=== PATIENT | female | born 1970 | race Caucasian/White ===

== ENCOUNTER 2017-01-13 09:44 | Inpatient (IN) | payer OTHER ==
[2017-01-13] MEDS ORDERED: SODIUM CHLORIDE 0.9% 1,000 ML IV STA ×2 (09:54)
[2017-01-13] MEDS ORDERED: SODIUM CHLORIDE 0.9% 500 ML IV STA (09:54)
--- NOTE | 2017-01-13 09:54 | ED ---
General Adult HPI - General Chief complaint: Chest Pain Stated complaint: Chest Pain Time Seen by Provider: 01/13/17 09:53 Source: patient Mode of arrival: wheelchair Limitations: no limitations - Related Data Home Medications Medication Instructions Recorded Confirmed Allopurinol [Zyloprim] 150 mg PO DAILY 01/13/17 01/13/17 Hydrochlorothiazide [Hydrodiuril] 25 mg PO DAILY 01/13/17 01/13/17 Allergies Allergy/AdvReac Type Severity Reaction Status Date / Time No Known Allergies Allergy Unverified 01/13/17 10:23 Review of Systems ROS Statement: Those systems with pertinent positive or pertinent negative responses have been documented in the HPI. ROS Other: All systems not noted in ROS Statement are negative. Past Medical History Past Medical History: Hypertension Additional Past Medical History / Comment(s): gout History of Any Multi-Drug Resistant Organisms: None Reported Past Surgical History: No Surgical Hx Reported Past Psychological History: No Psychological Hx Reported Smoking Status: Current every day smoker Past Alcohol Use History: Daily Past Drug Use History: None Reported General Exam Limitations: no limitations General appearance: alert, in no apparent distress Head exam: Present: atraumatic, normocephalic, normal inspection Eye exam: Present: normal appearance, PERRL, EOMI. Absent: scleral icterus, conjunctival injection, periorbital swelling ENT exam: Present: normal exam, mucous membranes moist Neck exam: Present: normal inspection. Absent: tenderness, meningismus, lymphadenopathy Respiratory exam: Present: normal lung sounds bilaterally. Absent: respiratory distress, wheezes, rales, rhonchi, stridor Cardiovascular Exam: Present: normal rhythm, tachycardia, normal heart sounds. Absent: systolic murmur, diastolic murmur, rubs, gallop, clicks GI/Abdominal exam: Present: soft, normal bowel sounds. Absent: distended, tenderness, guarding, rebound, rigid Extremities exam: Present: normal inspection, full ROM, normal capillary refill. Absent: tenderness, pedal edema, joint swelling, calf tenderness Back exam: Present: normal inspection Neurological exam: Present: alert, oriented X3, CN II-XII intact Psychiatric exam: Present: normal affect, normal mood Skin exam: Present: warm, dry, intact, normal color. Absent: rash Course Vital Signs 01/13/17 01/13/17 01/13/17 09:45 11:00 12:00 Temperature 98.4 F Pulse Rate 135 H 112 H 117 H Respiratory 22 20 20 Rate Blood Pressure 131/93 127/86 124/86 O2 Sat by Pulse 97 99 98 Oximetry - Reevaluation(s) Reevaluation #1: 01/13/17 12:45 Patient states he/chest pain at this time EKG Findings - EKG Comments: EKG Findings:: EKG shows sinus tachycardia 123, purulent 12, QRS 62, QTc 601 Medical Decision Making - Medical Decision Making 46 female ear for evaluation regarding nonspecific chest pain. Mild pleural effusion found, patient be admitted for cardiac evaluation and echo, patient also is with electrolyte abnormalities which can be replaced - Lab Data Result diagrams: 01/13/17 10:05 01/13/17 10:05 Lab Results 01/13/17 01/13/17 01/13/17 Range/Units 10:05 10:05 10:05 WBC 11.3 H (3.8-10.6) k/uL RBC 3.84 (3.80-5.40) m/uL Hgb 13.2 (11.4-16.0) gm/dL Hct 37.9 (34.0-46.0) % MCV 98.8 (80.0-100.0) fL MCH 34.4 (25.0-35.0) pg MCHC 34.8 (31.0-37.0) g/dL RDW 13.2 (11.5-15.5) % Plt Count 260 (150-450) k/uL Neutrophils % 80 % Lymphocytes % 12 % Monocytes % 5 % Eosinophils % 0 % Basophils % 0 % Neutrophils # 9.0 H (1.3-7.7) k/uL Lymphocytes # 1.4 (1.0-4.8) k/uL Monocytes # 0.6 (0-1.0) k/uL Eosinophils # 0.0 (0-0.7) k/uL Basophils # 0.0 (0-0.2) k/uL PT (9.0-12.0) sec INR (<1.2) APTT (22.0-30.0) sec D-Dimer (<0.60) mg/L FEU Sodium 132 L (137-145) mmol/L Potassium 3.2 L (3.5-5.1) mmol/L Chloride 88 L (98-107) mmol/L Carbon Dioxide 31 H (22-30) mmol/L Anion Gap 13 mmol/L BUN 8 (7-17) mg/dL Creatinine 0.49 L (0.52-1.04) mg/dL Est GFR (MDRD) Af Amer >60 (>60 ml/min/1.73 sqM) Est GFR (MDRD) Non-Af >60 (>60 ml/min/1.73 sqM) Glucose 124 H (74-99) mg/dL Calcium 10.3 H (8.4-10.2) mg/dL Magnesium 1.0 L* (1.6-2.3) mg/dL Total Bilirubin 1.5 H (0.2-1.3) mg/dL AST 41 H (14-36) U/L ALT 35 (9-52) U/L Alkaline Phosphatase 137 H (38-126) U/L Total Creatine Kinase <20 L (30-135) U/L CK-MB (CK-2) <0.2 (0.0-2.4) ng/mL CK-MB (CK-2) Rel Index Troponin I 0.036 H* (0.000-0.034) ng/mL Total Protein 7.1 (6.3-8.2) g/dL Albumin 3.7 (3.5-5.0) g/dL Lipase 24 (23-300) U/L TSH 2.090 (0.465-4.680) mIU/L 01/13/17 Range/Units 10:05 WBC (3.8-10.6) k/uL RBC (3.80-5.40) m/uL Hgb (11.4-16.0) gm/dL Hct (34.0-46.0) % MCV (80.0-100.0) fL MCH (25.0-35.0) pg MCHC (31.0-37.0) g/dL RDW (11.5-15.5) % Plt Count (150-450) k/uL Neutrophils % % Lymphocytes % % Monocytes % % Eosinophils % % Basophils % % Neutrophils # (1.3-7.7) k/uL Lymphocytes # (1.0-4.8) k/uL Monocytes # (0-1.0) k/uL Eosinophils # (0-0.7) k/uL Basophils # (0-0.2) k/uL PT 11.4 (9.0-12.0) sec INR 1.1 (<1.2) APTT 25.5 (22.0-30.0) sec D-Dimer 1.89 H (<0.60) mg/L FEU Sodium (137-145) mmol/L Potassium (3.5-5.1) mmol/L Chloride (98-107) mmol/L Carbon Dioxide (22-30) mmol/L Anion Gap mmol/L BUN (7-17) mg/dL Creatinine (0.52-1.04) mg/dL Est GFR (MDRD) Af Amer (>60 ml/min/1.73 sqM) Est GFR (MDRD) Non-Af (>60 ml/min/1.73 sqM) Glucose (74-99) mg/dL Calcium (8.4-10.2) mg/dL Magnesium (1.6-2.3) mg/dL Total Bilirubin (0.2-1.3) mg/dL AST (14-36) U/L ALT (9-52) U/L Alkaline Phosphatase (38-126) U/L Total Creatine Kinase (30-135) U/L CK-MB (CK-2) (0.0-2.4) ng/mL CK-MB (CK-2) Rel Index Troponin I (0.000-0.034) ng/mL Total Protein (6.3-8.2) g/dL Albumin (3.5-5.0) g/dL Lipase (23-300) U/L TSH (0.465-4.680) mIU/L - Radiology Data Radiology results: report reviewed (Chest x-ray negative, ultrasound is negative , CTAs negative for fever positive for pericardial), image reviewed Critical Care Time Critical Care Time: Yes Total Critical Care Time: 31 Disposition Clinical Impression: Chest pain, Pericardial effusion, Hypomagnesemia Disposition: ADMITTED IP TO THIS [facility] Condition: Fair Referrals: Jose Alejandro Louis DO [Primary Care Provider] - 1-2 days
[2017-01-13 10:33] LABS: Basophils % (A) 0 %; CH 35.8; CHCM 36.4; Eosinophils % (A) 0 %; HCT 37.9 % (34.0-46.0); HGB 13.2 gm/dL (11.4-16.0); Luc # (Auto) 0.26; Luc % (Auto) 2; Lymphocytes # (A) 1.4 k/uL (1.0-4.8); Lymphocytes % (A) 12 %; MCH 34.4 pg (25.0-35.0); MCHC 34.8 g/dL (31.0-37.0); MCV 98.8 fL (80.0-100.0); Mean Platelet Volume 8.5; Monocytes # (A) 0.6 k/uL (0-1.0); Monocytes % (A) 5 %; Neutrophils % (A) 80 %; RBC 3.84 m/uL (3.80-5.40); RDW 13.2 % (11.5-15.5); WBC 11.3 k/uL (3.8-10.6)
[2017-01-13 10:41] LABS: ALT 35 U/L (9-52); AST 41 U/L (14-36); Alkaline Phosphatase 137 U/L (38-126); Anion Gap 13 mmol/L; Blood Urea Nitrogen 8 mg/dL (7-17); Calcium 10.3 mg/dL (8.4-10.2); Carbon Dioxide 31 mmol/L (22-30); Chloride 88 mmol/L (98-107); Glucose 124 mg/dL (74-99); Non-African American GFR(MDRD) >60 (>60 ml/min/1.73 sqM); Potassium 3.2 mmol/L (3.5-5.1); Sodium 132 mmol/L (137-145); Total Bilirubin 1.5 mg/dL (0.2-1.3); Total Protein 7.1 g/dL (6.3-8.2)
[2017-01-13 10:54] LABS: Creatine Kinase <20 U/L (30-135)
--- NOTE | 2017-01-13 11:03 | XR ---
EXAMINATION TYPE: XR chest 2V DATE OF EXAM: 01/13/2017 COMPARISON: None HISTORY: 46 year-old female shortness of breath and chest pain TECHNIQUE: PA and lateral views FINDINGS: Heart is mildly enlarged. Some strandy opacities in the mid to lower lungs suggests atelectasis. Trac e effusions are noted on the lateral view. There may be mild prominence to the pulmonary vasculature. No crista consolidation. IMPRESSION: Cardiomegaly, trace effusions, and mild interstitial prominence. Correlate for mild CHF. Strandy atel ectasis in the lower left lung.
[2017-01-13 11:05] LABS: Creatine Kinase MB <0.2 ng/mL (0.0-2.4)
[2017-01-13 11:06] LABS: Troponin I 0.036 ng/mL (0.000-0.034)
[2017-01-13] MEDS ORDERED: POTASSIUM BICARB-CITRIC ACID 25 MEQ TABLET.EFF PO STA (11:06)
[2017-01-13] MEDS ORDERED: MAGNESIUM OXIDE 400 MG TAB PO STA (11:06)
[2017-01-13] MEDS ORDERED: RX INFO: IV CONTRAST WAS GIVEN 1 EACH MISC MISCELLANE PRN (11:08)
[2017-01-13 11:17] LABS: INR 1.1 (<1.2); Partial Thromboplastin Time 25.5 sec (22.0-30.0); Prothrombin Time 11.4 sec (9.0-12.0)
--- NOTE | 2017-01-13 12:17 | CT ---
EXAMINATION TYPE: CT angio chest DATE OF EXAM: 01/13/2017 COMPARISON: Radiograph same day HISTORY: 46-year-old female complains of midline chest pain and difficulty breathing. TECHNIQUE: Contiguous axial scanning of the chest performed with IV Contrast, patient injected with 1 00 mL of Omnipaque 350. Coronal/sagittal MIP reconstructions performed. CT DLP: 523 mGycm Automated exposure control for dose reduction was used. FINDINGS: The heart is upper limits of normal in size. However, there is a moderate-sized pericardial effusion circumferentially around the heart measuring 1.6 cm thick. The aorta is normal caliber with conventional arch vessel branching anatomy. Scattered nonenlarged mediastinal lymph nodes are present. The graft trace pleural effusions are pres ent. Strandy atelectasis at the left base. There are mild septal lines at the lung bases and mild underlyi ng centrilobular emphysema with some scattered groundglass especially in the mid to lower lungs. Mild diffuse bronchial wall thickening is also noted. Satisfactory opacification of the pulmonary arterial system. No evidence for pulmonary embolus. Visualized upper abdomen shows no gross abnormal. Bones: No osseous destructive process. IMPRESSION: 1. NO EVIDENCE FOR PULMONARY EMBOLUS. 2. MODERATE PERICARDIAL EFFUSION MEASURING 1.6 CM THICK. CLINICAL CORRELATION RECOMMENDED. 3. TRACE EFFUSIONS, SOME SEPTAL LINES, AND SOME SUBTLE GROUNDGLASS IN THE LOWER LUNGS. CORRELATE FOR POSSIBLE MILD CHF. 4. UNDERLYING MILD EMPHYSEMA.
--- NOTE | 2017-01-13 12:28 | US ---
EXAMINATION TYPE: US gallbladder DATE OF EXAM: 01/13/2017 COMPARISON: NONE CLINICAL HISTORY: 46-year-old female Pain. Pt states chest pain TECHNIQUE: Multiple sonographic images of the right upper quadrant are obtained. FINDINGS: Liver Length: 21.0 cm Gallbladder Wall: 0.5 cm CBD: 0.3 cm Right Kidney: 11.9 x 4.2 x 4.2 cm Pancreas: Body wnl, head and tail obscured by bowel gas Liver: Enlarged. There is a 1.9 cm echogenic lesion in the left hepatic lobe. Gallbladder: No abnormal gallbladder distention or shadowing calculi. However, there is wall thicken ing with trace pericholecystic fluid. Evidence for sonographic Olsen's sign: No CBD: Difficult to visualize; no gross dilatation. Right Kidney: No hydronephrosis. IMPRESSION: 1. Hepatomegaly. Correlate for possible nonspecific underlying hepatocellular disease such as hepatit is. 2. Gallbladder wall thickening with trace pericholecystic fluid. These are nonspecific findings as th ere are no stones, gallbladder distention, or sonographic Olsen sign identified. Findings may reflec t fluid overload state or could be reactive to adjacent inflammation. If further imaging evaluation o f the gallbladder is indicated, HIDA scan can be performed. 3. Recommend 3 month follow-up ultrasound to reassess the 1.9 cm echogenic liver lesion, possible hem angioma.
[2017-01-13] MEDS ORDERED: ASPIRIN 81 MG PO STA (12:45)
[2017-01-13] MEDS ORDERED: NITROGLYCERIN SL TABS 0.4 MG TAB SUBLINGUAL PRN (12:45)
[2017-01-13] MEDS ORDERED: LORazepam 2 MG/ML SYRINGE IV STA (13:14)
[2017-01-13] MEDS: MAGNESIUM SULFATE-D5W PMX 1 GM in DEXTROSE/WATER 1 100ML.BAG IVPB SCH ×4 (13:26→17:35)
--- NOTE | 2017-01-13 13:29 | ECHOF ---
Referral Reason:effusion MEASUREMENTS -------- HEIGHT: 152.4 cm WEIGHT: 78.9 kg BP: IVSd: 1.1 cm (0.6 - 1.1) LVIDd: 4.4 cm (3.9 - 5.3) LVPWd: 1.3 cm (0.6 - 1.1) IVSs: 1.5 cm LVIDs: 2.9 cm LVPWs: 1.3 cm Ao Diam: 2.6 cm (2.0 - 3.7) AV Cusp: 1.4 cm (1.5 - 2.6) LA Diam: 3.8 cm (2.7 - 3.8) MV EXCURSION: 20.477 mm (> 18.000) MV EF SLOPE: 96 mm/s (70 - 150) EPSS: 0.3 cm MV E West: 0.71 m/s MV DecT: 213 ms MV A West: 0.69 m/s MV E/A Ratio: 1.02 RAP: 5.00 mmHg RVSP: 18.36 mmHg FINDINGS -------- Sinus rhythm. This was a technically adequate study. The left ventricular size is normal. There is mild concentric left ventricular hypertrophy. Overall left ventricular systolic function is normal with, an EF between 55 - 60 %. The right ventricle is normal in size. The left atrial size is normal. The right atrial size is normal. There is mild aortic valve sclerosis. There is no evidence of aortic regurgitation. Mild mitral annular calcification present. Mild mitral regurgitation is present. Mild tricuspid regurgitation present. There is no evidence of pulmonary hypertension. The right ventricular systolic pressure, as measured by Doppler, is 18.36mmHg. There is no pulmonic regurgitation present. The aortic root size is normal. There is a moderate, generalized pericardial effusion with fibrin strands present. Fibrin strands in Pericardial fluid CONCLUSIONS -------- 1. The left ventricular size is normal. 2. There is no pulmonic regurgitation present. 3. There is a moderate, generalized pericardial effusion present. 4. Fibrin strands in Pericardial fluid 5. There is mild concentric left ventricular hypertrophy. 6. Overall left ventricular systolic function is normal with, an EF between 55 - 60 %. 7. There is mild aortic valve sclerosis. 8. Mild mitral annular calcification present. 9. Mild mitral regurgitation is present. 10. Mild tricuspid regurgitation present. 11. There is no evidence of pulmonary hypertension. 12. The right ventricular systolic pressure, as measured by Doppler, is 18.36mmHg. [employer] APPLICATION DEVELOPER: Lety Tamayo RDCS
[2017-01-13] MEDS: MORPHINE SULFATE 4 MG/ML SYRINGE IV PRN ×2 (13:52→15:51)
[2017-01-13] MEDS: POTASSIUM CHLORIDE 10 MEQ, LIDOCAINE 2% INJ 10 MG in SODIUM CHLORIDE 0.9% 100 ML IVPB SCH ×2 (14:19→15:42)
[2017-01-13] MEDS: SODIUM CHLORIDE 0.9% 1,000 ML IV SCH ×2 (14:19→23:33)
[2017-01-13] MEDS: PANTOPRAZOLE 40 MG TABLET PO SCH (15:45)
[2017-01-13] MEDS: IBUPROFEN 600 MG TAB PO SCH ×2 (15:46→22:11)
[2017-01-13] MEDS: COLCHICINE 0.6 MG TAB PO SCH (15:46)
[2017-01-13] MEDS: predniSONE 20 MG TAB PO SCH (15:46)
--- NOTE | 2017-01-13 15:46 | P.GSCN ---
<Sherly Brian - Last Filed: 01/13/17 15:21> History of Present Illness Consult date: 01/13/17 Reason for Consult: Pericardial effusion, treatment recommendations. Requesting physician: Riley Weiss History of present illness: This 46-year-old female with a history of hypertension gout, tobacco abuse, and alcohol abuse presented to the emergency department with complaints of chest pain. Apparently she had been having this chest pain for the last several days. She described it as sharp with radiation to her shoulders, associated with shortness of breath, nausea, and diaphoresis. She states the medication she was given in the ER has helped with the pain, but she is still somewhat short of breath. She denies dizziness, syncope, recent travel, sick contacts, or any recent illnesses. Her ER workup included a CTA which did rule out pulmonary embolism but demonstrated a moderate pericardial effusion. She had a mildly elevated troponin of 0.036, hypokalemia with potassium level of 3.2, and hypo-magnesiumia with a magnesium level of 1.0. An echocardiogram was ordered which demonstrated mild concentric left ventricular hypertrophy, normal LV function with an ejection fraction 55-60%, mild MR, mild TR, and a moderate generalized pericardial effusion with fibrin strands present. Dr. Lou was consulted for treatment recommendations. Review of Systems 14 point review systems was completed was negative except as noted. - Constitutional Reports fatigue - Cardiovascular Reports as per HPI, Reports dyspnea on exertion, Reports palpitations, Reports rapid heart beat, Reports shortness of breath - Respiratory Reports as per HPI, Reports dyspnea - Gastrointestinal Reports as per HPI, Reports nausea Past Medical History Past Medical History: Hypertension Additional Past Medical History / Comment(s): Bilateral great toe gout History of Any Multi-Drug Resistant Organisms: None Reported Past Surgical History: No Surgical Hx Reported Past Anesthesia/Blood Transfusion Reactions: No Reported Reaction Smoking Status: Current every day smoker Additional Past Alcohol Use History / Comment(s): States she drinks whiskey, several drinks every other day. Past Drug Use History: None Reported Additional Drug Use History / Comment(s): Smokes 1 pack of cigarettes daily for the last 20 years. - Past Family History Father Family Medical History: No Reported History Additional Family Medical History / Comment(s): Father is healthy Mother Family Medical History: Vascular Disorder Additional Family Medical History / Comment(s): Mother had carotid disease. She is still living. Medications and Allergies Home Medications Medication Instructions Recorded Confirmed Type Colchicine [Colcrys] 0.6 mg PO BID #42 tab 01/15/17 Rx Ibuprofen [Motrin] 600 mg PO BID #42 tab 01/15/17 Rx Nicotine 21Mg/24Hr Patch [Habitrol] 1 patch TRANSDERM DAILY #30 patch 01/15/17 Rx predniSONE See Taper PO DAILY #14 tab 01/15/17 Rx Allergies Allergy/AdvReac Type Severity Reaction Status Date / Time No Known Allergies Allergy Unverified 01/13/17 10:23 Surgical - Exam Vital Signs Temp Pulse Resp BP Pulse Ox 98.4 F 135 H 22 131/93 97 01/13/17 09:45 01/13/17 09:45 01/13/17 09:45 01/13/17 09:45 01/13/17 09:45 - General well developed, well nourished, no distress, obese - Eyes PERRL, normal ocular movement - ENT no hearing loss - Neck no masses, no bruits, trachea midline - Respiratory Lungs sounds very diminished bilaterally. Respirations even, nonlabored. Currently on room air with oxygen saturation 97%. normal expansion - Cardiovascular S1, S2 present. No distant heart sounds. Regular, tachycardia rate and rhythm , sinus tach on telemetry. Palpable pulses bilaterally, no edema present. - Abdomen Abdomen: soft, non tender, bowel sounds - Genitourinary Deferred - Rectum Deferred - Integumentary no rash, no growths, no abnormal pigmentation - Neurologic normal coordination, normal sensation - Musculoskeletal normal gait, normal posture - Psychiatric oriented to time, oriented to person, oriented to place, speech is normal, memory intact Results - Labs 01/13/17 10:05 01/13/17 10:05 Abnormal Lab Results - Last 24 Hours (Table) 01/13/17 01/13/17 01/13/17 Range/Units 10:05 10:05 10:05 WBC 11.3 H (3.8-10.6) k/uL Neutrophils # 9.0 H (1.3-7.7) k/uL D-Dimer (<0.60) mg/L FEU Sodium 132 L (137-145) mmol/L Potassium 3.2 L (3.5-5.1) mmol/L Chloride 88 L (98-107) mmol/L Carbon Dioxide 31 H (22-30) mmol/L Creatinine 0.49 L (0.52-1.04) mg/dL Glucose 124 H (74-99) mg/dL Calcium 10.3 H (8.4-10.2) mg/dL Magnesium 1.0 L* (1.6-2.3) mg/dL Total Bilirubin 1.5 H (0.2-1.3) mg/dL AST 41 H (14-36) U/L Alkaline Phosphatase 137 H (38-126) U/L Total Creatine Kinase <20 L (30-135) U/L Troponin I 0.036 H* (0.000-0.034) ng/mL 01/13/17 Range/Units 10:05 WBC (3.8-10.6) k/uL Neutrophils # (1.3-7.7) k/uL D-Dimer 1.89 H (<0.60) mg/L FEU Sodium (137-145) mmol/L Potassium (3.5-5.1) mmol/L Chloride (98-107) mmol/L Carbon Dioxide (22-30) mmol/L Creatinine (0.52-1.04) mg/dL Glucose (74-99) mg/dL Calcium (8.4-10.2) mg/dL Magnesium (1.6-2.3) mg/dL Total Bilirubin (0.2-1.3) mg/dL AST (14-36) U/L Alkaline Phosphatase (38-126) U/L Total Creatine Kinase (30-135) U/L Troponin I (0.000-0.034) ng/mL Diabetes panel 01/13/17 Range/Units 10:05 Sodium 132 L (137-145) mmol/L Potassium 3.2 L (3.5-5.1) mmol/L Chloride 88 L (98-107) mmol/L Carbon Dioxide 31 H (22-30) mmol/L BUN 8 (7-17) mg/dL Creatinine 0.49 L (0.52-1.04) mg/dL Glucose 124 H (74-99) mg/dL Calcium 10.3 H (8.4-10.2) mg/dL AST 41 H (14-36) U/L ALT 35 (9-52) U/L Alkaline Phosphatase 137 H (38-126) U/L Total Protein 7.1 (6.3-8.2) g/dL Albumin 3.7 (3.5-5.0) g/dL Thyroid panel 01/13/17 Range/Units 10:05 TSH 2.090 (0.465-4.680) mIU/L Calcium panel 01/13/17 Range/Units 10:05 Calcium 10.3 H (8.4-10.2) mg/dL Albumin 3.7 (3.5-5.0) g/dL Pituitary panel 01/13/17 Range/Units 10:05 Sodium 132 L (137-145) mmol/L Potassium 3.2 L (3.5-5.1) mmol/L Chloride 88 L (98-107) mmol/L Carbon Dioxide 31 H (22-30) mmol/L BUN 8 (7-17) mg/dL Creatinine 0.49 L (0.52-1.04) mg/dL Glucose 124 H (74-99) mg/dL Calcium 10.3 H (8.4-10.2) mg/dL TSH 2.090 (0.465-4.680) mIU/L Adrenal panel 01/13/17 Range/Units 10:05 Sodium 132 L (137-145) mmol/L Potassium 3.2 L (3.5-5.1) mmol/L Chloride 88 L (98-107) mmol/L Carbon Dioxide 31 H (22-30) mmol/L BUN 8 (7-17) mg/dL Creatinine 0.49 L (0.52-1.04) mg/dL Glucose 124 H (74-99) mg/dL Calcium 10.3 H (8.4-10.2) mg/dL Total Bilirubin 1.5 H (0.2-1.3) mg/dL AST 41 H (14-36) U/L ALT 35 (9-52) U/L Alkaline Phosphatase 137 H (38-126) U/L Total Protein 7.1 (6.3-8.2) g/dL Albumin 3.7 (3.5-5.0) g/dL - Imaging Chest x-ray: report reviewed, image reviewed CT scan - chest: report reviewed, image reviewed EKG: image reviewed Additional studies: Echocardiogram results reviewed. Assessment and Plan (1) Hypertension Status: Acute (2) Gout Status: Acute (3) Tobacco abuse Status: Acute (4) Alcohol abuse Status: Acute (5) Hypomagnesemia Status: Acute (6) Pericardial effusion Status: Acute Plan: The patient was seen and examined bedside. Chart from/diagnostics were reviewed. Potassium and magnesium being replaced. Patient has already been started on aspirin, colchicine, Motrin, prednisone, would continue these medications. Will discuss the case with Dr. Lou, further recommendations forthcoming. Smoking cessation was encouraged. Thank you for this consult. We look forward to working with you in the care of your patient. Time with Patient: Greater than 30 <Juvenal Lou - Last Filed: 01/15/17 14:19> Surgical - Exam Vital Signs Temp Pulse Resp BP Pulse Ox 98.4 F 135 H 22 131/93 97 01/13/17 09:45 01/13/17 09:45 01/13/17 09:45 01/13/17 09:45 01/13/17 09:45 Results - Labs 01/13/17 10:05 01/15/17 05:17 Abnormal Lab Results - Last 24 Hours (Table) 01/15/17 Range/Units 05:17 Sodium 131 L (137-145) mmol/L Potassium 3.1 L (3.5-5.1) mmol/L Chloride 95 L (98-107) mmol/L Creatinine 0.40 L (0.52-1.04) mg/dL Calcium 8.2 L (8.4-10.2) mg/dL Diabetes panel 01/15/17 Range/Units 05:17 Sodium 131 L (137-145) mmol/L Potassium 3.1 L (3.5-5.1) mmol/L Chloride 95 L (98-107) mmol/L Carbon Dioxide 28 (22-30) mmol/L BUN 8 (7-17) mg/dL Creatinine 0.40 L (0.52-1.04) mg/dL Glucose 95 (74-99) mg/dL Calcium 8.2 L (8.4-10.2) mg/dL Calcium panel 01/15/17 Range/Units 05:17 Calcium 8.2 L (8.4-10.2) mg/dL Pituitary panel 01/15/17 Range/Units 05:17 Sodium 131 L (137-145) mmol/L Potassium 3.1 L (3.5-5.1) mmol/L Chloride 95 L (98-107) mmol/L Carbon Dioxide 28 (22-30) mmol/L BUN 8 (7-17) mg/dL Creatinine 0.40 L (0.52-1.04) mg/dL Glucose 95 (74-99) mg/dL Calcium 8.2 L (8.4-10.2) mg/dL Adrenal panel 01/15/17 Range/Units 05:17 Sodium 131 L (137-145) mmol/L Potassium 3.1 L (3.5-5.1) mmol/L Chloride 95 L (98-107) mmol/L Carbon Dioxide 28 (22-30) mmol/L BUN 8 (7-17) mg/dL Creatinine 0.40 L (0.52-1.04) mg/dL Glucose 95 (74-99) mg/dL Calcium 8.2 L (8.4-10.2) mg/dL Assessment and Plan Plan: The patient was seen and examined. I agree with the above assessment and plan. The patient is a 46-year-old female, who was otherwise healthy, who presented to the hospital with worsening shortness of breath. A computed tomography scan of the chest was negative for pulmonary embolus but did reveal a pericardial effusion. Echocardiogram confirmed evidence of a moderate pericardial effusion without evidence of tamponade. The patient is currently hemodynamically stable and breathing easily on room air. We will continue to observe her for now. Follow-up echocardiogram is planned for tomorrow morning. There is no plan for surgical intervention on my part at this time.
[2017-01-13] MEDS: NICOTINE 21MG/24HR PATCH TRANSDERM SCH (15:51)
[2017-01-13] MEDS: IPRATROPIUM-ALBUTEROL 3 ML NEB INHALATION SCH ×2 (16:35→20:47)
[2017-01-13 16:42] LABS: Anion Gap 11 mmol/L; Blood Urea Nitrogen 7 mg/dL (7-17); Calcium 9.1 mg/dL (8.4-10.2); Carbon Dioxide 28 mmol/L (22-30); Chloride 90 mmol/L (98-107); Glucose 165 mg/dL (74-99); Non-African American GFR(MDRD) >60 (>60 ml/min/1.73 sqM); Potassium 3.9 mmol/L (3.5-5.1); Sodium 129 mmol/L (137-145)
[2017-01-13 16:49] LABS: Creatine Kinase <20 U/L (30-135)
[2017-01-13 17:24] LABS: Creatine Kinase MB <0.2 ng/mL (0.0-2.4)
--- NOTE | 2017-01-13 17:42 | HP ---
HISTORY AND PHYSICAL DATE OF ADMISSION: 01/13/17 PRESENTING COMPLAINT: Shortness of breath. HISTORY OF PRESENTING COMPLAINT: This is a pleasant 46-year-old patient of Dr. Louis with known history of hypertension, gout, stable. Patient for about 2 weeks getting increasingly short of breath. Difficult to take a deep breath. It hurts in her chest. Has been taking Motrin for the same. Also noticed edema in the lower extremity. Uses about 3 pillows at night. Maybe low-grade fever and had been postponing and finally decided to come in. REVIEW OF SYSTEMS: Constitutional: Tired. HEENT: None. RESPIRATORY: As above. Cardiovascular as above. Gastrointestinal: None. Genitourinary: None. Musculoskeletal none. Dermatological and hematologic, lymphatic none. Psychiatry and neurologic none. PAST MEDICAL HISTORY: Hypertension, gout in both toes. Surgical history none. SOCIAL HISTORY: Lives with her boyfriend Carlos Enrique. Smoked a pack a day for 30 years. Drinks alcohol on alternate days. About 3-5 shots. 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 FAMILY HISTORY: Reviewed, noncontributory to presentation. HOME MEDICATIONS: 1. Hydrochlorothiazide 25 mg daily. 2. Allopurinol 150 mg a day. ALLERGIES: None. PHYSICAL EXAMINATION: Temperature 98.4, pulse 135, respiratory rate 22, blood pressure 131/93, pulse ox 97% on room air. General: Well built. sitting up, comfortable. Eyes: Pupils equal. Conjunctivae normal. HEENT: Oral cavity normal. NECK: JVD raised. Mass not palpable. Respiratory effort increased. Lungs bilateral basal crackles. Cardiovascular first and second sounds normal. Edema present. ABDOMEN: Soft, nontender. Liver and spleen not palpable. Lymphatics no lymph nodes palpable in the neck or axillae. Psychiatric alert and oriented times three. Mood and affect normal. Neurological: Pupils equal. Cranial nerves grossly intact. Power and sensation grossly intact. INVESTIGATIONS: White count 11.3, hemoglobin 13.2, potassium 3.2, BUN 8, creatinine 0.49, magnesium 1.0. Troponin 0.036. Chest x-ray reviewed by me shows cardiomegaly and venous prominence. EKG sinus tachycardia and some P-pulmonale in lead 2, nonspecific changes. Chest CTA some atelectasis. No PE. Shows a moderate pericardial effusion. A 2D echocardiogram shows moderate generalized pericardial effusion. EF 55-60%. ASSESSMENT: 1. This is a patient who presents with two weeks history of increasing chest pain, worse when she lies down. Better when she sits up. Some low-grade fever. Found to have a significant amount of moderate generalized pericardial effusion, likely felt to be from pericarditis and some clinical evidence of diastolic dysfunction. 2. Chronic alcohol use. 3. Chronic nicotine dependence. 4. Chronic obstructive pulmonary disease in an active cigarette smoker. 5. Obesity BMI 34.0. PLAN: Patient started on nebulized bronchodilators. Bronchodilators and inhaled steroids. Cardiology was consulted. She has been put on Motrin and Colchicine. Care was discussed with the patient, her sister and mother at the bedside. Dr. Matias from cardiology being consulted. Patient may need to be tapped depending on how she does. There was no obvious tamponade suggested at least on the echocardiogram. MMODL / IJN: [id number] /
--- NOTE | 2017-01-13 20:18 | CONS ---
CONSULTATION CHIEF COMPLAINT: Chest pain and shortness of breath. HISTORY OF PRESENT ILLNESS: Elen is a 46-year-old lady with no significant past medical history, who presented to hospital complaining of chest pain. She describes it as a precordial chest discomfort and shortness of breath. This started about 2 weeks ago when she initially presented to the emergency room at [facility]. From there, she was sent home. Comes back to [facility] with worsening symptoms. Due to this she was admitted to the hospital. A CT scan of the chest that was done to rule out pulmonary embolism. Came back negative for PE. Otherwise, showed moderate pericardial effusion. Her symptomatology is consistent with pericarditis with pericardial effusion. EKG does not reveal any significant changes. Troponin is in the marcelino zone at 0.036 which could be due to a myopericarditis. D-dimer was elevated at 1.89 chest x-ray showed mild cardiomegaly. EKG did not reveal ischemic changes. The patient had been started on steroids, Indocin and Colchicine with significant improvement in her symptoms in the last 2 hours. PAST MEDICAL HISTORY: Significant for hypertension and gout. FAMILY HISTORY: Significant for carotid stenosis in her mother and sister. SOCIAL HISTORY: Significant for smoking and also EtOH abuse. REVIEW OF SYSTEMS: HEENT is unremarkable. Cardiac as described above. Respiratory negative. GI negative. Genitourinary negative. Allergy/Immunology: Negative. Skin negative. Musculoskeletal negative. Endocrine: Negative. CONSTITUTIONAL: Negative DERM: Negative. Oncological negative. Rest of the systems reviewed, not relevant. EXAM: She is comfortable at rest. VITAL SIGNS: Stable. Chest exam reveals good air entry bilaterally. Heart exam reveals first and second heart sounds. No gallop. I do not hear any rub. ABDOMEN: Soft. Exam of the extremities did not reveal any edema. Peripheral pulses are felt. Echocardiogram shows moderate pericardial effusion. EKG showed sinus rhythm with sinus tachycardia. D-dimer is elevated. CT chest is negative for pulmonary embolism. Aortic root appears normal. Troponin is 0.039. Creatinine is normal at 0.4. White cell count is elevated at 11.3. ASSESSMENT: Acute pericarditis with pericardial effusion. PLAN: Patient's chest discomfort is very atypical of pericarditis. She states that she feels better when she bends forward. It gets worse when she is lying back. There is some respirophasic changes in her pain. We will treat her with steroids and NSAIDS and colchicine. Obtain ESR. Repeat an echocardiogram over the next several days and see how she does. MMTERRENCEL / IJN: [id number] /
[2017-01-13] MEDS ORDERED: METOPROLOL TARTRATE 50 MG TAB PO SCH (21:00)
[2017-01-13] MEDS: LORazepam 2 MG/ML SYRINGE IV PRN (22:12)
[2017-01-13 22:58] LABS: Creatine Kinase 22 U/L (30-135)
[2017-01-13 23:11] LABS: Creatine Kinase MB 0.2 ng/mL (0.0-2.4); Troponin I <0.012 ng/mL (0.000-0.034)
[2017-01-14] MEDS: PANTOPRAZOLE 40 MG TABLET PO SCH ×2 (06:42→17:17)
[2017-01-14 07:14] LABS: Anion Gap 9 mmol/L; Blood Urea Nitrogen 8 mg/dL (7-17); Calcium 8.2 mg/dL (8.4-10.2); Carbon Dioxide 26 mmol/L (22-30); Chloride 92 mmol/L (98-107); Cholesterol 156 mg/dL (<200); Glucose 134 mg/dL (74-99); HDL Cholesterol 46 mg/dL (40-60); Non-African American GFR(MDRD) >60 (>60 ml/min/1.73 sqM); Sodium 127 mmol/L (137-145)
[2017-01-14 07:23] LABS: Potassium 4.1 mmol/L (3.5-5.1)
[2017-01-14] MEDS: NICOTINE 21MG/24HR PATCH TRANSDERM SCH (08:21)
[2017-01-14] MEDS: SODIUM CHLORIDE 0.9% 1,000 ML IV SCH (08:21)
[2017-01-14] MEDS: predniSONE 20 MG TAB PO SCH (08:21)
[2017-01-14] MEDS: COLCHICINE 0.6 MG TAB PO SCH ×2 (08:21→20:02)
[2017-01-14] MEDS: ASPIRIN 325 MG TAB PO SCH (08:21)
[2017-01-14] MEDS: IBUPROFEN 600 MG TAB PO SCH ×3 (08:23→21:04)
--- NOTE | 2017-01-14 08:48 | P.PN ---
<Sherly Brian - Last Filed: 01/14/17 08:40> Subjective Principal diagnosis: Pericardial effusion Patient's currently sitting up in the bed in no acute distress. States chest pain and chest breath has significantly improved. She has been up ambulating [id number] to the bathroom without any distress. Objective - Vital Signs Vital signs: Vital Signs Temp 97.0 F L 01/14/17 08:00 Pulse 103 H 01/14/17 08:00 Resp 18 01/14/17 08:00 BP 109/71 01/14/17 08:00 Pulse Ox 95 01/14/17 08:00 Intake & Output 01/13/17 01/14/17 01/14/17 18:59 06:59 18:59 Intake Total 1100 1000 1240 Balance 1100 1000 1240 Weight 78.925 kg 83.1 kg Intake: IV 1000 Sodium Chloride 0.9% 1, 1000 000 ml @ 100 mls/hr IV . Q10H [facility] Rx#:[id number] Intake, IV Titration 500 1000 Amount Magnesium Sulfate-D5w Pmx 400 1 gm In Dextrose/Water 1 100ml.bag @ 100 mls/hr IVPB Q1H [facility] Rx#: [id number] Potassium Chloride 10 meq 100 100 Lidocaine 2% Inj 10 mg In Sodium Chloride 0.9% 100 ml @ 100 mls/hr IVPB Q1HR [facility] Rx#:[id number] Sodium Chloride 0.9% 1, 200 500 000 ml @ 100 mls/hr IV . Q10H [facility] Rx#:[id number] Sodium Chloride 0.9% 1, 200 000 ml @ 100 mls/hr IV . Q10H STA Rx#:[id number] Oral 600 240 Other: Voiding Method Toilet Toilet # Voids 1 - Constitutional General appearance: Present: cooperative, no acute distress - Respiratory Details: Lungs sounds diminished bilaterally. Respirations even, nonlabored. Currently on room air with oxygen saturation 95%. - Cardiovascular Details: S1, S2 present. Regular rate and rhythm, normal sinus rhythm on telemetry. Palpable pulses bilaterally. No edema present. - Gastrointestinal Gastrointestinal Comment(s): Abdomen soft, nontender, nondistended. Active bowel sounds 4 quadrants. Tolerating diet. - Genitourinary Genitourinary Comment(s): Continues to void clear, yellow urine. - Neurologic Neurologic: Present: CNII-XII intact - Musculoskeletal Musculoskeletal: Present: gait normal, strength equal bilaterally - Psychiatric Psychiatric: Present: A&O x's 3, appropriate affect, intact judgment & insight - Allied health notes Allied health notes reviewed: nursing - Labs CBC & Chem 7: 01/13/17 10:05 01/14/17 06:33 Labs: Abnormal Lab Results - Last 24 Hours (Table) 01/13/17 01/13/17 01/13/17 Range/Units 10:05 10:05 10:05 WBC 11.3 H (3.8-10.6) k/uL Neutrophils # 9.0 H (1.3-7.7) k/uL ESR (0-20) mm/hr D-Dimer (<0.60) mg/L FEU Sodium 132 L (137-145) mmol/L Potassium 3.2 L (3.5-5.1) mmol/L Chloride 88 L (98-107) mmol/L Carbon Dioxide 31 H (22-30) mmol/L Creatinine 0.49 L (0.52-1.04) mg/dL Glucose 124 H (74-99) mg/dL Calcium 10.3 H (8.4-10.2) mg/dL Magnesium 1.0 L* (1.6-2.3) mg/dL Total Bilirubin 1.5 H (0.2-1.3) mg/dL AST 41 H (14-36) U/L Alkaline Phosphatase 137 H (38-126) U/L Total Creatine Kinase <20 L (30-135) U/L Troponin I 0.036 H* (0.000-0.034) ng/mL 01/13/17 01/13/17 01/13/17 Range/Units 10:05 10:05 16:06 WBC (3.8-10.6) k/uL Neutrophils # (1.3-7.7) k/uL ESR 83 H (0-20) mm/hr D-Dimer 1.89 H (<0.60) mg/L FEU Sodium (137-145) mmol/L Potassium (3.5-5.1) mmol/L Chloride (98-107) mmol/L Carbon Dioxide (22-30) mmol/L Creatinine (0.52-1.04) mg/dL Glucose (74-99) mg/dL Calcium (8.4-10.2) mg/dL Magnesium (1.6-2.3) mg/dL Total Bilirubin (0.2-1.3) mg/dL AST (14-36) U/L Alkaline Phosphatase (38-126) U/L Total Creatine Kinase <20 L (30-135) U/L Troponin I (0.000-0.034) ng/mL 01/13/17 01/13/17 01/14/17 Range/Units 16:12 22:30 06:33 WBC (3.8-10.6) k/uL Neutrophils # (1.3-7.7) k/uL ESR (0-20) mm/hr D-Dimer (<0.60) mg/L FEU Sodium 129 L 127 L (137-145) mmol/L Potassium (3.5-5.1) mmol/L Chloride 90 L 92 L (98-107) mmol/L Carbon Dioxide (22-30) mmol/L Creatinine 0.40 L 0.40 L (0.52-1.04) mg/dL Glucose 165 H 134 H (74-99) mg/dL Calcium 8.2 L (8.4-10.2) mg/dL Magnesium (1.6-2.3) mg/dL Total Bilirubin (0.2-1.3) mg/dL AST (14-36) U/L Alkaline Phosphatase (38-126) U/L Total Creatine Kinase 22 L (30-135) U/L Troponin I (0.000-0.034) ng/mL Assessment and Plan (1) Hypertension Status: Acute (2) Gout Status: Acute (3) Tobacco abuse Status: Acute (4) Alcohol abuse Status: Acute (5) Hypomagnesemia Status: Acute (6) Pericardial effusion Status: Acute Plan: 1. Continue aspirin, colchicine, Motrin, prednisone. 2. Increase activity ambulate in hallway. 3. Medical comorbidities to be managed by primary care service. 4. Continue to encourage smoking cessation. 5. Patient appears stable at this point. Will discuss case with Dr. Lou but likely will just continue to monitor patient. Patient will have another echocardiogram per cardiology. <Juvenal Lou - Last Filed: 01/15/17 14:20> Objective - Vital Signs Vital signs: Vital Signs Temp 97.3 F L 01/15/17 11:34 Pulse 85 01/15/17 11:34 Resp 20 01/15/17 11:34 BP 119/73 01/15/17 11:34 Pulse Ox 98 01/15/17 11:34 Intake & Output 01/14/17 01/15/17 01/15/17 18:59 06:59 18:59 Intake Total 2780 1040 Output Total 3 400 Balance 2777 640 Weight 82.2 kg Intake: IV 1000 Sodium Chloride 0.9% 1, 1000 000 ml @ 100 mls/hr IV . Q10H [facility] Rx#:[id number] Oral 1780 1040 Output: Urine 3 400 Other: Voiding Method Toilet Toilet Toilet # Voids 3 1 1 - Labs CBC & Chem 7: 01/13/17 10:05 01/15/17 05:17 Labs: Abnormal Lab Results - Last 24 Hours (Table) 01/15/17 Range/Units 05:17 Sodium 131 L (137-145) mmol/L Potassium 3.1 L (3.5-5.1) mmol/L Chloride 95 L (98-107) mmol/L Creatinine 0.40 L (0.52-1.04) mg/dL Calcium 8.2 L (8.4-10.2) mg/dL Assessment and Plan Plan: The patient appears to be hemodynamically stable. We will continue to monitor for now. No plans for surgical intervention at this time.
[2017-01-14] MEDS: IPRATROPIUM-ALBUTEROL 3 ML NEB INHALATION SCH ×4 (09:18→20:11)
--- NOTE | 2017-01-14 10:12 | P.PN ---
Subjective Principal diagnosis: Pericardial effusion This is a 46-year-old female who presented to the hospital with symptoms of chest discomfort and difficulty in breathing. She was noted to have a moderate-sized pericardial effusion. We started her yesterday on steroids, Indocin, and colchicine with significant improvement in her symptoms. This morning she states she has mild pain when she takes a very deep breath otherwise she's feeling much better overall. Blood pressure 110/70, heart rate in the 80s. Sodium 127, potassium 4.1, BUN 8, creatinine 0.4. Objective - Vital Signs Vital signs: Vital Signs Temp 97.0 F L 01/14/17 08:00 Pulse 100 01/14/17 09:28 Resp 18 01/14/17 08:00 BP 109/71 01/14/17 08:00 Pulse Ox 95 01/14/17 08:00 Intake & Output 01/13/17 01/14/17 01/14/17 18:59 06:59 18:59 Intake Total 1100 1000 1240 Balance 1100 1000 1240 Weight 78.925 kg 83.1 kg Intake: IV 1000 Sodium Chloride 0.9% 1, 1000 000 ml @ 100 mls/hr IV . Q10H [facility] Rx#:[id number] Intake, IV Titration 500 1000 Amount Magnesium Sulfate-D5w Pmx 400 1 gm In Dextrose/Water 1 100ml.bag @ 100 mls/hr IVPB Q1H [facility] Rx#: [id number] Potassium Chloride 10 meq 100 100 Lidocaine 2% Inj 10 mg In Sodium Chloride 0.9% 100 ml @ 100 mls/hr IVPB Q1HR [facility] Rx#:[id number] Sodium Chloride 0.9% 1, 200 500 000 ml @ 100 mls/hr IV . Q10H [facility] Rx#:[id number] Sodium Chloride 0.9% 1, 200 000 ml @ 100 mls/hr IV . Q10H STA Rx#:[id number] Oral 600 240 Other: Voiding Method Toilet Toilet # Voids 1 - Exam PHYSICAL EXAMINATION: HEENT: Head is atraumatic, normocephalic. Pupils equal, round. Neck is supple. There is no elevated jugular venous pressure. HEART EXAMINATION: Heart S1, S2 normal. No murmur or gallop heard. CHEST EXAMINATION: Lungs are clear to auscultation and precussion. Mild chest wall tenderness is noted on deep breathing. ABDOMEN: Soft, nontender. Bowel sounds are heard. No organomegaly noted. EXTREMITIES: 2+ peripheral pulses with no evidence of peripheral edema and no calf tenderness noted. NEUROLOGIC patient is awake, alert and oriented -3. . - Labs CBC & Chem 7: 01/13/17 10:05 01/14/17 06:33 Labs: Abnormal Lab Results - Last 24 Hours (Table) 01/13/17 01/13/17 01/13/17 Range/Units 10:05 10:05 10:05 WBC 11.3 H (3.8-10.6) k/uL Neutrophils # 9.0 H (1.3-7.7) k/uL ESR (0-20) mm/hr D-Dimer (<0.60) mg/L FEU Sodium 132 L (137-145) mmol/L Potassium 3.2 L (3.5-5.1) mmol/L Chloride 88 L (98-107) mmol/L Carbon Dioxide 31 H (22-30) mmol/L Creatinine 0.49 L (0.52-1.04) mg/dL Glucose 124 H (74-99) mg/dL Calcium 10.3 H (8.4-10.2) mg/dL Magnesium 1.0 L* (1.6-2.3) mg/dL Total Bilirubin 1.5 H (0.2-1.3) mg/dL AST 41 H (14-36) U/L Alkaline Phosphatase 137 H (38-126) U/L Total Creatine Kinase <20 L (30-135) U/L Troponin I 0.036 H* (0.000-0.034) ng/mL 01/13/17 01/13/17 01/13/17 Range/Units 10:05 10:05 16:06 WBC (3.8-10.6) k/uL Neutrophils # (1.3-7.7) k/uL ESR 83 H (0-20) mm/hr D-Dimer 1.89 H (<0.60) mg/L FEU Sodium (137-145) mmol/L Potassium (3.5-5.1) mmol/L Chloride (98-107) mmol/L Carbon Dioxide (22-30) mmol/L Creatinine (0.52-1.04) mg/dL Glucose (74-99) mg/dL Calcium (8.4-10.2) mg/dL Magnesium (1.6-2.3) mg/dL Total Bilirubin (0.2-1.3) mg/dL AST (14-36) U/L Alkaline Phosphatase (38-126) U/L Total Creatine Kinase <20 L (30-135) U/L Troponin I (0.000-0.034) ng/mL 01/13/17 01/13/17 01/14/17 Range/Units 16:12 22:30 06:33 WBC (3.8-10.6) k/uL Neutrophils # (1.3-7.7) k/uL ESR (0-20) mm/hr D-Dimer (<0.60) mg/L FEU Sodium 129 L 127 L (137-145) mmol/L Potassium (3.5-5.1) mmol/L Chloride 90 L 92 L (98-107) mmol/L Carbon Dioxide (22-30) mmol/L Creatinine 0.40 L 0.40 L (0.52-1.04) mg/dL Glucose 165 H 134 H (74-99) mg/dL Calcium 8.2 L (8.4-10.2) mg/dL Magnesium (1.6-2.3) mg/dL Total Bilirubin (0.2-1.3) mg/dL AST (14-36) U/L Alkaline Phosphatase (38-126) U/L Total Creatine Kinase 22 L (30-135) U/L Troponin I (0.000-0.034) ng/mL Assessment and Plan (1) Pericardial effusion Status: Acute (2) Pericarditis Status: Acute (3) Alcohol abuse Status: Acute (4) Gout Status: Acute (5) Hypertension Status: Acute (6) Tobacco abuse Status: Acute Plan: From cardiology's perspective, we'll continue the patient on nonsteroidals, Indocin, and colchicine. We will repeat a limited echocardiogram with Doppler study tomorrow to assess the pericardial effusion. DNP note has been reviewed, I agree with a documented findings and plan of care. Patient was seen and examined.
[2017-01-14] MEDS: MORPHINE SULFATE 4 MG/ML SYRINGE IV PRN ×2 (13:55→20:02)
[2017-01-14] MEDS: LORazepam 2 MG/ML SYRINGE IV PRN (21:04)
--- NOTE | 2017-01-14 23:15 | P.PN ---
Subjective Principal diagnosis: Acute pericardial effusion and pericarditis This is a 46-year-old female with a known history of hypertension and gout presented to the hospital with symptoms of chest discomfort and difficulty in breathing. She was noted to have a moderate-sized pericardial effusion. Patient was started on steroids, Indocin, and colchicine with significant improvement in her symptoms. On 01/14/2017 she states she has mild pain when she takes a very deep breath otherwise she's feeling much better overall. Cardiology is planning for repeat echocardiogram tomorrow. No fever no chills. No other acute overnight issues. Objective - Vital Signs Vital signs: Vital Signs Temp 97.1 F L 01/14/17 20:00 Pulse 104 H 01/14/17 20:28 Resp 16 01/14/17 20:00 BP 117/72 01/14/17 20:00 Pulse Ox 96 01/14/17 20:00 Intake & Output 01/14/17 01/14/17 01/15/17 06:59 18:59 06:59 Intake Total 1000 2780 Output Total 3 Balance 1000 2777 Weight 83.1 kg Intake: IV 1000 Sodium Chloride 0.9% 1, 1000 000 ml @ 100 mls/hr IV . Q10H [facility] Rx#:[id number] Intake, IV Titration 1000 Amount Magnesium Sulfate-D5w Pmx 400 1 gm In Dextrose/Water 1 100ml.bag @ 100 mls/hr IVPB Q1H [facility] Rx#: [id number] Potassium Chloride 10 meq 100 Lidocaine 2% Inj 10 mg In Sodium Chloride 0.9% 100 ml @ 100 mls/hr IVPB Q1HR [facility] Rx#:[id number] Sodium Chloride 0.9% 1, 500 000 ml @ 100 mls/hr IV . Q10H [facility] Rx#:[id number] Oral 1780 Output: Urine 3 Other: Voiding Method Toilet Toilet Toilet # Voids 1 3 - Exam PHYSICAL EXAMINATION: Patient is lying in the bed comfortably, no acute distress, awake alert and oriented.. HEENT: Normocephalic. Neck is supple. Pupils reactive. Nostrils clear. Oral cavity is moist. Ears reveal no drainage. Neck reveals no JVD, carotid bruits, or thyromegaly. CHEST EXAMINATION: Trachea is central. Symmetrical expansion. Lung mtz clear to auscultation and percussion. CARDIAC: Normal S1, S2 with no gallops. No murmurs ABDOMEN: Soft. Bowel sounds normal. No organomegaly. No abdominal bruits. Extremities reveal no edema. No clubbing or cyanosis Neurologically awake, alert, oriented x3 with well-coordinated movements. Skin: no rash or skin lesions Musculoskeletal: no joint swelling or deformity. - Labs CBC & Chem 7: 01/13/17 10:05 01/14/17 06:33 Labs: Abnormal Lab Results - Last 24 Hours (Table) 01/13/17 01/14/17 Range/Units 22:30 06:33 Sodium 127 L (137-145) mmol/L Chloride 92 L (98-107) mmol/L Creatinine 0.40 L (0.52-1.04) mg/dL Glucose 134 H (74-99) mg/dL Calcium 8.2 L (8.4-10.2) mg/dL Total Creatine Kinase 22 L (30-135) U/L Assessment and Plan Plan: #1 moderate pericardial effusion and acute pericarditis #2 chronic alcohol use #3 COPD with active smoking #4 gout stable #5 morbid obesity with a BMI of 34 #6 mildly elevated troponin level on admission due to pericarditis #7 hypomagnesemia #8 hypovolemic hyponatremia likely due to hydrochlorothiazide which has been held Plan: Patient be continued on prednisone, colchicine and Motrin. Patient did improve symptomatically. Repeat TTE tomorrow. Cardiology is following this patient. We'll replace electrolyte and monitor for any alcohol withdrawal symptoms. We will continue to follow closely and further recommendations based on the clinical course. Patient was counseled for alcohol abuse and cigarette cessation. Time with Patient: Greater than 30
[2017-01-15 06:16] LABS: Anion Gap 8 mmol/L; Blood Urea Nitrogen 8 mg/dL (7-17); Calcium 8.2 mg/dL (8.4-10.2); Carbon Dioxide 28 mmol/L (22-30); Chloride 95 mmol/L (98-107); Glucose 95 mg/dL (74-99); Non-African American GFR(MDRD) >60 (>60 ml/min/1.73 sqM); Potassium 3.1 mmol/L (3.5-5.1); Sodium 131 mmol/L (137-145)
[2017-01-15] MEDS: PANTOPRAZOLE 40 MG TABLET PO SCH (06:47)
[2017-01-15] MEDS: COLCHICINE 0.6 MG TAB PO SCH (08:33)
[2017-01-15] MEDS: ASPIRIN 325 MG TAB PO SCH (08:33)
[2017-01-15] MEDS: predniSONE 20 MG TAB PO SCH (08:33)
[2017-01-15] MEDS: NICOTINE 21MG/24HR PATCH TRANSDERM SCH (08:33)
[2017-01-15] MEDS: IPRATROPIUM-ALBUTEROL 3 ML NEB INHALATION SCH ×2 (08:55→12:13)
[2017-01-15] MEDS ORDERED: IBUPROFEN 600 MG TAB PO SCH (09:00)
[2017-01-15 09:10] VITALS: RESP 20
--- NOTE | 2017-01-15 09:22 | P.PN ---
Subjective Principal diagnosis: Pericardial effusion Patient's currently sitting up in the bed in no acute distress. States chest pain and chest breath has significantly improved. She has been up ambulating without any distress. Objective - Vital Signs Vital signs: Vital Signs Temp 97.0 F L 01/15/17 08:00 Pulse 100 01/15/17 09:06 Resp 20 01/15/17 08:00 BP 121/72 01/15/17 08:00 Pulse Ox 98 01/15/17 08:00 Intake & Output 01/14/17 01/15/17 01/15/17 18:59 06:59 18:59 Intake Total 2780 640 Output Total 3 400 Balance 2777 240 Weight 82.2 kg Intake: IV 1000 Sodium Chloride 0.9% 1, 1000 000 ml @ 100 mls/hr IV . Q10H [facility] Rx#:[id number] Oral 1780 640 Output: Urine 3 400 Other: Voiding Method Toilet Toilet Toilet # Voids 3 1 1 - Constitutional General appearance: Present: cooperative, no acute distress - Respiratory Details: Lungs sounds diminished bilaterally. Respirations even, nonlabored. Currently on room air with oxygen saturation 99%. - Cardiovascular Details: S1, S2 present. Regular rate and rhythm, normal sinus rhythm on telemetry. No distant heart sounds. Palpable pulses bilaterally. No edema present. - Gastrointestinal Gastrointestinal Comment(s): Abdomen soft, nontender, nondistended. Active bowel sounds 4 quadrants. Tolerating diet. - Genitourinary Genitourinary Comment(s): Continues to void clear, yellow urine. - Neurologic Neurologic: Present: CNII-XII intact - Musculoskeletal Musculoskeletal: Present: gait normal, strength equal bilaterally - Psychiatric Psychiatric: Present: A&O x's 3, appropriate affect, intact judgment & insight - Allied health notes Allied health notes reviewed: nursing - Labs CBC & Chem 7: 01/13/17 10:05 01/15/17 05:17 Labs: Abnormal Lab Results - Last 24 Hours (Table) 01/15/17 Range/Units 05:17 Sodium 131 L (137-145) mmol/L Potassium 3.1 L (3.5-5.1) mmol/L Chloride 95 L (98-107) mmol/L Creatinine 0.40 L (0.52-1.04) mg/dL Calcium 8.2 L (8.4-10.2) mg/dL Assessment and Plan (1) Hypertension Status: Acute (2) Gout Status: Acute (3) Tobacco abuse Status: Acute (4) Alcohol abuse Status: Acute (5) Hypomagnesemia Status: Acute (6) Pericardial effusion Status: Acute Plan: 1. Continue aspirin, colchicine, Motrin, prednisone. 2. Increase activity ambulate in hallway. 3. Medical comorbidities to be managed by primary care service. 4. Continue to encourage smoking cessation. 5. Patient is asymptomatic. No surgical intervention necessary at this time. May discharge to home from our standpoint. Time with Patient: Greater than 30
--- NOTE | 2017-01-15 09:27 | P.PN ---
Subjective Principal diagnosis: Pericardial effusion This is a 46-year-old female who presented to the hospital with symptoms of chest discomfort and difficulty in breathing. She was noted to have a moderate-sized pericardial effusion. We started her yesterday on steroids, Indocin, and colchicine with significant improvement in her symptoms. This morning she states she has mild pain when she takes a very deep breath otherwise she's feeling much better overall. Blood pressure 110/70, heart rate in the 80s. Sodium 127, potassium 4.1, BUN 8, creatinine 0.4. 01/15/2017 Patient seen and examined this morning, feels well, denies any chest pain. A limited repeat echocardiogram with Doppler study was performed which revealed trace to small pericardial effusion. From cardiology's perspective, patient may be able to be discharged home today. We will decrease the dose of Motrin to twice a day, taper the prednisone, continue colchicine for 3 weeks. Following that an appointment will be made with Dr. Matias in the office. Objective - Vital Signs Vital signs: Vital Signs Temp 97.0 F L 01/15/17 08:00 Pulse 100 01/15/17 09:06 Resp 20 01/15/17 08:00 BP 121/72 01/15/17 08:00 Pulse Ox 98 01/15/17 08:00 Intake & Output 01/14/17 01/15/17 01/15/17 18:59 06:59 18:59 Intake Total 2780 640 Output Total 3 400 Balance 2777 240 Weight 82.2 kg Intake: IV 1000 Sodium Chloride 0.9% 1, 1000 000 ml @ 100 mls/hr IV . Q10H [facility] Rx#:[id number] Oral 1780 640 Output: Urine 3 400 Other: Voiding Method Toilet Toilet Toilet # Voids 3 1 1 - Exam PHYSICAL EXAMINATION: HEENT: Head is atraumatic, normocephalic. Pupils equal, round. Neck is supple. There is no elevated jugular venous pressure. HEART EXAMINATION: Heart S1, S2 normal. No murmur or gallop heard. CHEST EXAMINATION: Lungs are clear to auscultation and precussion. No chest wall tenderness is noted on deep breathing. ABDOMEN: Soft, nontender. Bowel sounds are heard. No organomegaly noted. EXTREMITIES: 2+ peripheral pulses with no evidence of peripheral edema and no calf tenderness noted. NEUROLOGIC patient is awake, alert and oriented -3. . - Labs CBC & Chem 7: 01/13/17 10:05 01/15/17 05:17 Labs: Abnormal Lab Results - Last 24 Hours (Table) 01/15/17 Range/Units 05:17 Sodium 131 L (137-145) mmol/L Potassium 3.1 L (3.5-5.1) mmol/L Chloride 95 L (98-107) mmol/L Creatinine 0.40 L (0.52-1.04) mg/dL Calcium 8.2 L (8.4-10.2) mg/dL Assessment and Plan (1) Pericardial effusion Status: Acute (2) Pericarditis Status: Acute (3) Alcohol abuse Status: Acute (4) Gout Status: Acute (5) Hypertension Status: Acute (6) Tobacco abuse Status: Acute Plan: From cardiology's perspective, she may be up to be discharged home today. We will decrease Motrin to twice a day, continue colchicine at current dose, taper prednisone, continue colchicine and Motrin for 3 weeks. Follow-up appointment with Dr. Matias in the office in 4 weeks. DNP note has been reviewed, I agree with a documented findings and plan of care. Patient was seen and examined.
[2017-01-15 11:35] VITALS: BP 119/73; PULSE 85; TEMP 97.3
--- NOTE | 2017-01-15 12:00 | ECHOF ---
Referral Reason:limited, to assess pericardial effusion MEASUREMENTS -------- HEIGHT: 154.9 cm WEIGHT: 82.1 kg BP: 102/57 FINDINGS -------- Sinus rhythm. This was a technically good study. Limited Study The left ventricular size is normal. There is normal global left ventricular contractility. Overall left ventricular systolic function is normal with, an EF between 55 - 60 %. There is a small to moderate, generalized pericardial effusion present. Improved compared to 01/13/17 CONCLUSIONS -------- 1. Sinus rhythm. 2. This was a technically good study. 3. Limited Study 4. The left ventricular size is normal. 5. There is normal global left ventricular contractility. 6. Overall left ventricular systolic function is normal with, an EF between 55 - 60 %. 7. There is a small, generalized pericardial effusion present. SHUCKER: Sherly Serrano RDCS
[2017-01-16] MEDS ORDERED: predniSONE 20 MG TAB PO SCH (09:00)
== END 2017-01-15 13:57 | disposition home or self-care (01) | DRG 316 ==
LOC: EC 09:44 → 6SEL 12:45
PROVIDERS: ADMIT Hospitalist; ATTEND Hospitalist
DX: I30.9 Acute pericarditis, unspecified (principal); E83.42 Hypomagnesemia; I10 Essential (primary) hypertension; J44.9 Chronic obstructive pulmonary disease, unspecified; F17.210 Nicotine dependence, cigarettes, uncomplicated; F10.10 Alcohol abuse, uncomplicated; M10.9 Gout, unspecified; E87.6 Hypokalemia; E66.01 Morbid (severe) obesity due to excess calories; Z82.49 Family history of ischemic heart disease and other diseases of the circulatory system; Z79.1 Long term (current) use of non-steroidal anti-inflammatories (NSAID); Z68.34 Body mass index [BMI] 34.0-34.9, adult; Z79.899 Other long term (current) drug therapy; Z71.6 Tobacco abuse counseling; Z71.41 Alcohol abuse counseling and surveillance of alcoholic
CPT/HCPCS: 36415; 71020; 71275; 76705; 80048; 80053; 80061; 82550; 82553; 83690; 83735; 83880; 84443; 84484; 85025; 85379; 85610; 85652; 85730; 93005; 93306; 93308; 94640; 94760; 96360; 96361; 99291

== ENCOUNTER → 2017-06-09 | Outpatient (CLI) | payer OTHER ==
--- NOTE | 2017-06-09 14:49 | CT ---
EXAMINATION TYPE: CT abdomen wo/w con DATE OF EXAM: 06/09/2017 HISTORY: Abnormal gallbladder ultrasound No complaints at time of scan CT DLP: 1675mGycm Automated Exposure Control for Dose Reduction was Utilized. CONTRAST: CT scan of the abdomen and pelvis is performed without and with IV Contrast, patient injected with 10 0 mL of Omnipaque 300. COMPARISON: Chest CT in gallbladder ultrasound January 13, 2017 FINDINGS: LUNG BASES: Marked interval improvement in prior visualized pericardial effusion. LIVER/GB: Liver remains normal in size. There is no suspicious intrahepatic or extra hepatic biliary dilatation. Likely corresponding to ultrasound abnormality in the lateral segment left hepatic lobe t here is 1.0 x 0.7 cm heterogeneous hypodense lesion on noncontrast study image 22 series 3 that shows heterogeneous postcontrast enhancement greater than adjacent liver with central linear nonenhancemen t or scar that becomes isodense to liver on delayed phased images. PANCREAS: No significant abnormality is seen. SPLEEN: No significant abnormality is seen. ADRENALS: No significant abnormality is seen. KIDNEYS: No significant abnormality is seen. BOWEL: The oral contrast does not reach colonic level. There is mild to moderate wall thickening and prominent transverse colon with air-fluid level. There is mild to moderate wall thickening visualized sigmoid colon with sigmoid colonic diverticulosis. No surrounding fat stranding is seen. Normal-appe aring appendix is seen ascending from cecum. LYMPH NODES: No greater than 1cm abdominal lymph nodes are appreciated. OSSEOUS STRUCTURES: There is mild multilevel spurring in the thoracic spine. OTHER: No significant additional abnormality is seen. IMPRESSION: Nonspecific 1.0 cm solid left liver lesion likely corresponds to area of ultrasound abnor mality, differential includes small hepatic adenoma versus FNH. Advise liver protocol MRI surveillanc e in one year's time to reassess.
== END | disposition home or self-care (01) ==
LOC: RADCTMAIN 13:10
PROVIDERS: ATTEND Family Medicine
DX: K76.9 Liver disease, unspecified (principal)
CPT/HCPCS: 74170; Q9967

== ENCOUNTER 2018-12-27 14:53 | Emergency (ER) | payer OTHER ==
--- NOTE | 2018-12-27 16:32 | ED ---
General Adult HPI - General Chief complaint: Recheck/Abnormal Lab/Rx Stated complaint: Feeding tube is clogged Time Seen by Provider: 12/27/18 15:06 Source: patient Mode of arrival: ambulatory Limitations: no limitations - History of Present Illness Initial comments: Patient is a 48-year-old female with history of oral cancer who is undergoing treatment with their pain radiation currently is presenting to emergency Department with a chief complaint of a clogged PEG tube. Patient reports initial PEG tube placement approximately 4 weeks ago. Patient reports last night she had difficulty pushing her medication and fluids to affected But it eventually cleared up. Patient reports she woke up this morning and was unable to push any medication or fluids. Patient reports using carbonated drinks to clear the tube with minimal improvement. PEG tube placement was in [facility]. Patient denies any nausea or vomiting or diarrhea. Patient reports mild discomfort at the insertion site. Patient reports the pain is aggravated with influenza pushed into the PEG tube. - Related Data Home Medications Medication Instructions Recorded Confirmed ARIPiprazole [Abilify] 5 mg PO DAILY 12/27/18 12/27/18 Famotidine 20 mg PO BID 12/27/18 12/27/18 Fluconazole [Diflucan] 100 mg PO DAILY 12/27/18 12/27/18 Potassium Citrate [Potassium 10 meq PO DAILY 12/27/18 12/27/18 Citrate ER] Allergies Allergy/AdvReac Type Severity Reaction Status Date / Time No Known Allergies Allergy Verified 12/27/18 15:40 Review of Systems ROS Statement: Those systems with pertinent positive or pertinent negative responses have been documented in the HPI. ROS Other: All systems not noted in ROS Statement are negative. Past Medical History Past Medical History: Hypertension Additional Past Medical History / Comment(s): Bilateral great toe gout, oral cancer, undergoing chemo and radiation History of Any Multi-Drug Resistant Organisms: None Reported Past Surgical History: No Surgical Hx Reported Additional Past Surgical History / Comment(s): Med port, peg tube placement Past Anesthesia/Blood Transfusion Reactions: No Reported Reaction Past Psychological History: No Psychological Hx Reported Smoking Status: Former smoker Past Alcohol Use History: None Reported Past Drug Use History: None Reported - Past Family History Father Family Medical History: No Reported History Additional Family Medical History / Comment(s): Father is healthy Mother Family Medical History: Vascular Disorder Additional Family Medical History / Comment(s): Mother had carotid disease. She is still living. General Exam Limitations: no limitations General appearance: alert, in no apparent distress Head exam: Present: atraumatic, normocephalic, normal inspection Eye exam: Present: normal appearance, PERRL, EOMI Pupils: Present: normal accommodation ENT exam: Present: normal exam, mucous membranes moist, TM's normal bilaterally, normal external ear exam. Absent: normal oropharynx (Oral surgery due to cancer.) Neck exam: Present: full ROM. Absent: normal inspection (Partial deformity due to oral surgery), tenderness Respiratory exam: Present: normal lung sounds bilaterally Cardiovascular Exam: Present: regular rate, normal rhythm, normal heart sounds GI/Abdominal exam: Present: soft, tenderness (Tenderness with palpation near the PEG tube insertion site.), normal bowel sounds. Absent: distended, guarding, rebound, mass Extremities exam: Present: normal inspection, full ROM Back exam: Present: normal inspection, full ROM Neurological exam: Present: alert, oriented X3 Psychiatric exam: Present: normal affect, normal mood Skin exam: Present: warm, intact, normal color Course Vital Signs 12/27/18 14:58 Temperature 98.3 F Pulse Rate 89 Respiratory 16 Rate Blood Pressure 118/76 O2 Sat by Pulse 98 Oximetry Medical Decision Making - Medical Decision Making Patient is a 48-year-old male with history of HER who is currently undergoing chemotherapy and radiation is presenting to emergency Department with a chief complaint of a clogged PEG tube. Patient reports she had difficulty time patient fluids and medication through her PEG tube this morning. I used a Ceci syringe and was unable to fully push the fluid I consulted with GI who suggested to use core oven tender products to free up the tube. G also suggested if that does not work, the tube could be replaced. The carbonated drink was able to free of the clogged and the PEG tube. Fluid was moving through in and out. There was residual volume pulled through a PEG tube. Strict return parameters were thoroughly discussed the patient was understanding and agreeable. Patient is satisfied is ready go home. Case discussed with physician. Disposition Clinical Impression: PEG tube malfunction Disposition: HOME SELF-CARE Condition: Stable Instructions (If sedation given, give patient instructions): PEG Tube Insertion (DC), How to Use and Care for Your PEG Tube (ED), Percutaneous Endoscopic Gastrostomy (ED) Additional Instructions: Please follow instructions for proper PEG tube care. Please return to emergency department if symptoms worsen. Is patient prescribed a controlled substance at d/c from ED?: No Referrals: Jose Alejandro Louis DO [Primary Care Provider] - 1-2 days Time of Disposition: 17:00
[2018-12-27 17:13] VITALS: BP 121/81; PULSE 86; RESP 18; TEMP 98.7
== END 2018-12-27 17:13 | disposition home or self-care (01) ==
LOC: EC 14:53
DX: K94.23 Gastrostomy malfunction (principal); M10.9 Gout, unspecified; I10 Essential (primary) hypertension; Z79.899 Other long term (current) drug therapy; Z85.818 Personal history of malignant neoplasm of other sites of lip, oral cavity, and pharynx; Z92.21 Personal history of antineoplastic chemotherapy; Z92.3 Personal history of irradiation; Z98.890 Other specified postprocedural states; Z87.891 Personal history of nicotine dependence
CPT/HCPCS: 99282

== ENCOUNTER 2019-01-04 09:49 | Emergency (ER) | payer OTHER ==
[2019-01-04 09:56] VITALS: BP 118/78; PULSE 92; RESP 18; TEMP 98.1
--- NOTE | 2019-01-04 11:10 | ED ---
General Adult HPI - General Chief complaint: Recheck/Abnormal Lab/Rx Stated complaint: feeding tube is plugged Time Seen by Provider: 01/04/19 10:08 Source: patient, RN notes reviewed Mode of arrival: ambulatory Limitations: no limitations - History of Present Illness Initial comments: 48-year-old female presents to the emergency department for a chief complaint of G tube dysfunction. Patient states she had a G-tube placed at [facility] in October secondary to oral cancer. States that it was clogged last week and she came in and had it flushed. Patient states that it became clogged again today. States she has mild pain when trying to flush it. Denies fevers or chills.Patient has no other complaints at this time including shortness of breath, chest pain, abdominal pain, nausea or vomiting, headache, or visual changes. - Related Data Home Medications Medication Instructions Recorded Confirmed ARIPiprazole [Abilify] 5 mg PO DAILY 12/27/18 12/27/18 Famotidine 20 mg PO BID 12/27/18 12/27/18 Fluconazole [Diflucan] 100 mg PO DAILY 12/27/18 12/27/18 Potassium Citrate [Potassium 10 meq PO DAILY 12/27/18 12/27/18 Citrate ER] Allergies Allergy/AdvReac Type Severity Reaction Status Date / Time No Known Allergies Allergy Verified 01/04/19 09:53 Review of Systems ROS Statement: Those systems with pertinent positive or pertinent negative responses have been documented in the HPI. ROS Other: All systems not noted in ROS Statement are negative. Past Medical History Past Medical History: Hypertension Additional Past Medical History / Comment(s): Bilateral great toe gout, oral cancer, undergoing chemo and radiation History of Any Multi-Drug Resistant Organisms: None Reported Past Surgical History: No Surgical Hx Reported Additional Past Surgical History / Comment(s): Med port, peg tube placement Past Anesthesia/Blood Transfusion Reactions: No Reported Reaction Past Psychological History: No Psychological Hx Reported Smoking Status: Former smoker Past Alcohol Use History: None Reported Past Drug Use History: None Reported - Past Family History Father Family Medical History: No Reported History Additional Family Medical History / Comment(s): Father is healthy Mother Family Medical History: Vascular Disorder Additional Family Medical History / Comment(s): Mother had carotid disease. She is still living. General Exam Limitations: no limitations General appearance: alert, in no apparent distress Head exam: Present: atraumatic, normocephalic, normal inspection Eye exam: Present: normal appearance, PERRL, EOMI. Absent: scleral icterus, conjunctival injection, periorbital swelling ENT exam: Present: normal exam, mucous membranes moist Neck exam: Present: normal inspection. Absent: tenderness, meningismus, lymphadenopathy Respiratory exam: Present: normal lung sounds bilaterally. Absent: respiratory distress, wheezes, rales, rhonchi, stridor Cardiovascular Exam: Present: regular rate, normal rhythm, normal heart sounds. Absent: systolic murmur, diastolic murmur, rubs, gallop, clicks GI/Abdominal exam: Present: soft, normal bowel sounds, other (G tube placed - no erythema or drainage, mild induration superior to site). Absent: distended, tenderness, guarding, rebound, rigid Course Vital Signs 01/04/19 09:53 Temperature 98.1 F Pulse Rate 92 Respiratory 18 Rate Blood Pressure 118/78 O2 Sat by Pulse 100 Oximetry Medical Decision Making - Medical Decision Making 48-year-old female with oral cancer and G2 presents for G-tube dysfunction. States she cannot flush it. States she has mild pain when pushing in. Patient had this done at [facility] by a Dr Her in mid October. G-tube it does flush but with more pressure and slower than normal. However patient states she can feed with this amount of force. Delay in care did occur during attempts to locate a 20-[place] G-tube. We were able to locate this. However when attempting to withdraw G-tube it is a traction remove all G-tube without a balloon. Patient does not feel she can tolerate the pressure of removing this. We did offer sedating patient but she does not want to do this. Patient also does not want the G-tube we have with the balloon. Patient prefers to go to [facility] where she had this put in to further rectify this problem with the correct G tube. She will be discharged home and will go directly to [facility]. She'll return here if she has any worsening symptoms. Disposition Clinical Impression: Gastrostomy tube dysfunction Disposition: HOME SELF-CARE Condition: Good Instructions (If sedation given, give patient instructions): How to Use and Care for Your PEG Tube (ED) Additional Instructions: Please follow-up with your doctor as soon as possible. Return to the emergency department if you have any worsening symptoms. Is patient prescribed a controlled substance at d/c from ED?: No Referrals: Jose Alejandro Louis DO [Primary Care Provider] - 1-2 days Time of Disposition: 12:36
== END 2019-01-04 12:30 | disposition home or self-care (01) ==
LOC: EC 09:49
DX: K94.23 Gastrostomy malfunction (principal); Z87.891 Personal history of nicotine dependence; Z79.899 Other long term (current) drug therapy; Z85.818 Personal history of malignant neoplasm of other sites of lip, oral cavity, and pharynx; Z92.21 Personal history of antineoplastic chemotherapy; Z92.3 Personal history of irradiation; Z53.29 Procedure and treatment not carried out because of patient's decision for other reasons
CPT/HCPCS: 99282

== ENCOUNTER 2020-03-27 08:00 | Day surgery (SDC) | payer OTHER ==
[2020-03-25 10:40] VITALS: BMI 23.3
[~2020-03-27 08:00] MED LIST: LACTATED RINGERS 1,000 ML IV SCH; ONDANSETRON 4 MG/2 ML VIAL IVP PRN
[2020-03-27 08:40] VITALS: RESP 16; TEMP 97.7
[2020-03-27] MEDS ORDERED: MIDAZOLAM 2 MG/2 ML VIAL ONE (08:47)
[2020-03-27] MEDS ORDERED: LIDOCAINE 1% INJ 10MG/ML (20 ML MDV) ONE (08:47)
[2020-03-27] MEDS ORDERED: PROPOFOL 10 MG/ML 20 ML VIAL IV ONE (08:47)
--- NOTE | 2020-03-27 09:07 | P.PCN ---
Date of Procedure: 03/27/20 Procedure(s) Performed: BRIEF HISTORY: Patient is a 49-year-old, pleasant, with history of head and neck CA diagnosed in 2018, status post surgery 2 followed by chemoradiation that ended in January 2020. She has affected placed few years ago. She is been having progressive dysphagia to solids and hence scheduled for an upper endoscopy with possible dilation . PROCEDURE PERFORMED: Esophagogastroduodenoscopy with biopsy . PREOPERATIVE DIAGNOSIS: progressive dysphagia to solids of 2 years duration/ history of head and neck CA diagnosed 2 years ago IV sedation per anesthesia. PROCEDURE: After informed consent was obtained, the patient was brought into the endoscopy unit. IV sedation was administered by Anesthesia under continuous monitoring. Initially the Olympus GIF-140 video endoscope was inserted into the mouth. There was deformity noted at the upper esophageal sphincter with some sc arring noted in this area. With gentle manipulation and pressure the scope was advanced into the esophagus. It was gradually advanced into the stomach and duodenum and carefully examined. The bulb and the second part of the duodenum appeared normal. The scope at this time was withdrawn to the stomach, adequately insufflated with air, and upon careful examination, mucosa of the antrum, body, cardia and the fundus appeared normal. The scope was then withdrawn into the esophagus. The GE junction was located at 39 cm from the incisors. The esophagus appeared normal. There were no erosions or ulcerations seen and the patient tolerated the procedure well. IMPRESSION: 1. 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 2. Short segment Santos's esophagus and small hiatal RECOMMENDATIONS: The findings of this examination were discussed with the patient as well as a family. She was advised to follow with the biopsy results. She will continue with tube feeds and soft diet as tolerated
[2020-03-27 09:28] VITALS: BP 111/75; PULSE 80
== END 2020-03-27 09:35 | disposition home or self-care (01) ==
LOC: ORWHC2ENDO 08:00
PROVIDERS: ATTEND Internal Medicine Gastroenterology
DX: K22.70 Barrett's esophagus without dysplasia (principal); K44.9 Diaphragmatic hernia without obstruction or gangrene; K20.90 Esophagitis, unspecified without bleeding; Z85.89 Personal history of malignant neoplasm of other organs and systems; Z92.21 Personal history of antineoplastic chemotherapy; Z92.3 Personal history of irradiation; Z87.891 Personal history of nicotine dependence; F32.9 Major depressive disorder, single episode, unspecified; Z79.899 Other long term (current) drug therapy
CPT/HCPCS: 88305; 43239; J2250; J2001; J2704

== ENCOUNTER → 2023-09-09 | Outpatient (CLI) | payer MEDICARE, OTHER ==
--- NOTE | 2023-09-13 06:12 | MR ---
EXAMINATION TYPE: MR shoulder RT wo con DATE OF EXAM: 09/09/2023 COMPARISON: None HISTORY: No prior. humerus fx 01/23 from fall, pt having residual pain, no sx TECHNIQUE: Multiplanar, multisequence imaging of the right shoulder is performed without contrast. FINDINGS: Suboptimal due to motion artifact. Rotator Cuff: Increased signal in the supraspinatus tendon with surrounding fluid. Some increased sig nal in the infraspinatus tendon with adjacent fluid. Mild to moderate generalized muscular atrophy. Acromioclavicular Joint: Mild to moderate narrowing. Distal acromion morphology unremarkable. Glenohumeral Joint: Moderate to large size effusion. Synovial thickening anteriorly is seen. At least moderate narrowing inferiorly. Labrum: Superior retraction of the labrum with large cleft consistent with large tear. Biceps Tendon: The long head of biceps is in normal location within bicipital groove. Bone marrow signal: Curvilinear diminished T1 signal surgical neck consistent with malunion fracture given patient history. Deformity to the humeral head with marked heterogeneous diminished T1 and incr eased T2 signal extending into the proximal metaphysis and diaphysis. Other: No additional significant abnormality is appreciated. IMPRESSION: 1. Fracture injury to the proximal humerus with deformity of the humeral head suggesting malunion. Pe rsistent significant abnormal bone marrow edema through the humeral head into the proximal humerus. 2. Moderate to large size glenohumeral joint effusion. At least partially detached superior labral te ar. 3. Tendinosis/partial tearing of supraspinatus and infraspinatus tendons.
== END | disposition home or self-care (01) ==
LOC: RADMRIMAIN 16:03
PROVIDERS: ATTEND Orthopaedic Surgery Hand Surgery
DX: S42.241D 4-part fracture of surgical neck of right humerus, subsequent encounter for fracture with routine healing (principal); S46.011A Strain of muscle(s) and tendon(s) of the rotator cuff of right shoulder, initial encounter; M25.411 Effusion, right shoulder; M67.813 Other specified disorders of tendon, right shoulder